=== PATIENT | female | born 1990 | race Asian ===

== ENCOUNTER 2017-03-18 10:15 | Inpatient (IN) | payer SELFPAY ==
[~2017-03-18] VITALS: Ht 166 cm; Wt 65.0 kg
[2017-03-18] MEDS ORDERED: LR 1,000 ML IV ONE (11:18)
[2017-03-18] MEDS ORDERED: OXYTOCIN/NORMAL SALINE 1,000 ML IV SCH ×2 (11:18→17:29)
[2017-03-18] MEDS ORDERED: LR 1,000 ML IV SCH (11:18)
[2017-03-18] MEDS ORDERED: TERBUTALINE SULFATE 1 MG/ML VIAL SUBCUT ONE (11:30)
[2017-03-18] MEDS ORDERED: NALBUPHINE HCL 10 MG/ML AMP IVP PRN (11:30)
[2017-03-18] MEDS ORDERED: FENT2mCg/mL-ROPIVA0.2%/NS EPID 150 ML EP ONE (12:04)
[2017-03-18 12:05] LABS: BASOPHILS % (AUTO) 0.3 % (0.0-2.0); EOSINOPHILS % (AUTO) 0.2 % (0.0-4.0); HEMOGLOBIN 12.4 g/dL (12.0-16.0); LYMPHOCYTES # (AUTO) 1.1 K/uL (1.0-5.5); LYMPHOCYTES % (AUTO) 14.1 % (20.5-51.5); MEAN CORPUSCULAR HEMOGLOBIN 33 pg (27-31); MEAN CORPUSCULAR HGB CONC 34 % (32-36); MEAN CORPUSCULAR VOLUME 95 fL (79.0-98.0); MONOCYTES # (AUTO) 0.4 K/uL (0.0-1.0); MONOCYTES % (AUTO) 4.9 % (1.7-9.3); NEUTROPHILS # (AUTO) 6.5 K/uL (1.8-7.7); NEUTROPHILS % (AUTO) 80.5 % (40.0-70.0); PLATELET COUNT (AUTO) 155 K/uL (130-430); RED BLOOD CELL COUNT(AUTO) 3.79 MIL/uL (4.2-6.2); RED CELL DISTRIBUTION WIDTH 12.1 % (9.0-15.0)
[2017-03-18] MEDS ORDERED: LR 500 ML IV ONE (12:47)
[2017-03-18] MEDS ORDERED: ePHEDrine sulfate 50 MG/ML VIAL IVP PRN (13:00)
[2017-03-18] MEDS ORDERED: FENT2mCg/mL-ROPIVA0.2%/NS EPID 150 ML EP SCH (13:00)
[2017-03-18] MEDS ORDERED: METHYLERGONOVINE MALEATE 0.2 MG/ML AMP ONE (17:20)
[2017-03-18] MEDS ORDERED: METHYLERGONOVINE MALEATE 0.2 MG/ML AMP IM ONE (17:20)
[2017-03-18] MEDS ORDERED: OXYTOCIN/NORMAL SALINE 1,000 ML IV ONE (17:29)
[2017-03-18] MEDS ORDERED: MEASLES,MUMPS&RUBELLA VACC/PF 12500 UNIT/0.5 ML VIAL SUBQ PRN (17:30)
[2017-03-18] MEDS ORDERED: DERMOPLAST SPRAY TP PRN (17:30)
[2017-03-18] MEDS ORDERED: GLYCERIN/WITCH HAZEL (TUCKS PADS) TP PRN (17:30)
[2017-03-18] MEDS ORDERED: HYDROCORTISONE 0.5%, 28.35 GM TOPICAL CREAM TP PRN (17:30)
[2017-03-18] MEDS ORDERED: RHO(D) IMMUNE GLOBULIN/MALTOSE 1500 UNITS/1.3 ML (WINHRO) IM PRN (17:30)
[2017-03-18] MEDS ORDERED: ANUSOL 1 EA SUPP.RECT (PREPARATION H) RC PRN (17:30)
[2017-03-18] MEDS ORDERED: HYDROcodone/ACETAMIN 5-325 MG TAB (NORCO/ VICODIN) PO PRN (17:30)
[2017-03-18] MEDS ORDERED: TEMAZEPAM 15 MG CAPSULE PO PRN (17:30)
[2017-03-18] MEDS ORDERED: SENNOSIDES/DOCUSATE SODIUM 1 TAB TABLET(SENOKOT-S) PO PRN (17:30)
[2017-03-18] MEDS ORDERED: ACETAMINOPHEN 325 MG TABLET PO PRN (17:30)
[2017-03-18] MEDS ORDERED: LANOLIN 7 GM OINT. TP PRN (17:30)
[2017-03-18] MEDS ORDERED: METHYLERGONOVINE MALEATE 0.2 MG TABLET PO PRN (17:30)
[2017-03-18] MEDS: DOCUSATE SODIUM 100 MG CAPSULE PO PRN (21:34)
[2017-03-18] MEDS: IBUPROFEN 600 MG TABLET PO SCH (23:33)
[2017-03-19 06:15] LABS: HEMATOCRIT 26.7 % (36-48); HEMOGLOBIN 9.4 g/dL (12.0-16.0)
[2017-03-19] MEDS ORDERED: MILK OF MAGNESIA 30 ML UDC PO PRN (09:45)
[2017-03-19] MEDS: HYDROcodone/ACETAMIN 5-325 MG TAB (NORCO/ VICODIN) PO PRN ×2 (09:47→14:38)
[2017-03-19] MEDS: DOCUSATE SODIUM 100 MG CAPSULE PO PRN ×2 (09:47→14:38)
[2017-03-19] MEDS: FERROUS SULFATE 325 MG TABLET.DR PO SCH (14:37)
[2017-03-19] MEDS: IBUPROFEN 600 MG TABLET PO SCH (23:27)
[2017-03-20] MEDS: FERROUS SULFATE 325 MG TABLET.DR PO SCH (11:58)
[2017-03-20] MEDS: IBUPROFEN 600 MG TABLET PO SCH (11:58)
== END 2017-03-20 16:45 | disposition home or self-care (01) | DRG 775 ==
LOC: SPU 10:15
PROVIDERS: ADMIT Obstetrics & Gynecology; ATTEND Obstetrics & Gynecology
PROC: 10D07Z6 Extraction of Products of Conception, Vacuum, Via Natural or Artificial Opening (ICD-10-PCS; principal; 2017-03-18)
PROC: 0W8NXZZ Division of Female Perineum, External Approach (ICD-10-PCS; 2017-03-18)
PROC: 3E0S3CZ (ICD-10-PCS; 2017-03-18)
PROC: 00HU33Z Insertion of Infusion Device into Spinal Canal, Percutaneous Approach (ICD-10-PCS; 2017-03-18)
DX: O75.89 Other specified complications of labor and delivery (principal); Z3A.37 37 weeks gestation of pregnancy; Z37.0 Single live birth
CPT/HCPCS: 36415; 85018-TC; 85025; 86592; 86886; 86900; 86901; J2210; J2590; J3010